=== PATIENT | male | born 1960 | race Two or more races ===

== ENCOUNTER 2021-10-07 14:19 | Emergency (ER) | payer OTHER ==
[~2021-10-07] VITALS: Ht 170.2 cm; Wt 173.0 kg
[2021-10-07] MEDS ORDERED: PROPARACAINE HCL 0.5% 15 ML OPHTHALMIC SOLUTION OS ONE (16:30)
[2021-10-07] MEDS ORDERED: APRACLONIDINE 0.5% 5 ML OPHTHALMIC SOLUTION OS ONE (17:00)
[2021-10-07] MEDS ORDERED: TIMOLOL MALEATE 0.5% 5 ML OPHTHALMIC SOLUTION OS ONE (17:00)
[2021-10-07] MEDS ORDERED: PILOCARPINE HCL 1% 15 ML OPHTHALMIC SOLUTION OS ONE (17:00)
[2021-10-07 18:02] VITALS: BP 162/87
== END 2021-10-07 18:34 | disposition home or self-care (01) ==
LOC: EMS 14:30
DX: H40.9 Unspecified glaucoma (principal); I10 Essential (primary) hypertension
CPT/HCPCS: 99284; Z7502; Z7610